=== PATIENT | female | born 1980 | race Caucasian/White ===

== ENCOUNTER 2020-08-23 08:05 | Outpatient (CLI) | payer BC | END 2020-08-23 23:59 | disposition home or self-care (01) | LOC: CFH 08:05 → EDSTATUS 08:30 → CFH 23:59 | PROVIDERS: ATTEND Radiology Diagnostic Radiology | DX: N85.4 Malposition of uterus (principal); N97.9 Female infertility, unspecified; E34.9 Endocrine disorder, unspecified | CPT/HCPCS: 76830 ==

== ENCOUNTER 2020-08-31 12:22 | Outpatient (CLI) | payer BC ==
[2020-08-31] MEDS ORDERED: OMNIPAQUE 350 MG/ML, 50 ML BOTTLE ONE (13:00)
== END 2020-08-31 23:59 | disposition home or self-care (01) ==
LOC: RAD 12:22
PROVIDERS: ATTEND Obstetrics & Gynecology Reproductive Endocrinology
DX: N97.9 Female infertility, unspecified (principal)
CPT/HCPCS: 58340; 74740; Q9967

== ENCOUNTER → 2020-09-06 | Outpatient (CLI) | payer BC | END | disposition home or self-care (01) | LOC: CFH 06:45 | PROVIDERS: ATTEND Obstetrics & Gynecology Reproductive Endocrinology | DX: D25.1 Intramural leiomyoma of uterus (principal); N88.8 Other specified noninflammatory disorders of cervix uteri; N97.9 Female infertility, unspecified | CPT/HCPCS: 76830 ==

== ENCOUNTER → 2020-10-22 | Outpatient (CLI) | payer BC | END | disposition home or self-care (01) | LOC: RAD 07:35 | PROVIDERS: ATTEND Obstetrics & Gynecology Reproductive Endocrinology | DX: Z32.00 Encounter for pregnancy test, result unknown (principal); N97.9 Female infertility, unspecified; E34.9 Endocrine disorder, unspecified; D25.9 Leiomyoma of uterus, unspecified | CPT/HCPCS: 76830 ==